=== PATIENT | female | born 2005 | race Caucasian/White ===

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

== ENCOUNTER 2025-02-21 19:29 | Emergency (ER) | payer SELFPAY ==
[~2025-02-21] VITALS: Ht 167.6 cm; Wt 51.2 kg
[2025-02-21 19:34] VITALS: BP 115/67; PULSE 94; RESP 18; TEMP 99.2; O2SAT 99
== END 2025-02-21 23:25 | disposition left against medical advice (07) ==
LOC: ER 19:29
DX: H92.09 Otalgia, unspecified ear (principal); Z53.21 Procedure and treatment not carried out due to patient leaving prior to being seen by health care provider